=== PATIENT | male | born 1985 | race American Indian/Alaskan Native ===

== ENCOUNTER 2018-02-17 22:12 | Emergency (ER) | payer SELFPAY ==
--- NOTE | 2018-02-17 22:45 | Cat Scan Report ---
FINAL REPORT PROCEDURE: CT HEAD/BRAIN WO CON TECHNIQUE: Computerized tomography of the head was performed without contrast material. HISTORY: neuro deficits <6hrs or sx present upon awakening COMPARISON: No prior studies are available for comparison. FINDINGS: Brain: Brain density appears normal. No evidence of intracranial hemorrhage. No parenchymal hemorrh age, mass lesions or mass effect are seen. No abnormal extraxial fluid collects or masses are seen. Ventricles: Ventricles are normal size and are midline. Bone Windows: No evidence of skull fracture. Paranasal sinuses: Clear Mastoid air cells: Clear IMPRESSION: Negative exam. No acute or focal abnormalities are seen. If symptoms are persisting or worsening cons ider follow-up CT scan or MRI for further evaluation.
[2018-02-17 22:48] LABS: Basophils # (Auto) 0.1 K/mm3 (0.0-0.1); Eosinophils # (Auto) 0.2 K/mm3 (0.0-0.4); Eosinophils % (Auto) 2.8 % (0.0-4.3); Hematocrit 43.3 % (35.5-45.6); Hemoglobin 14.8 gm/dl (11.8-15.2); Lymphocytes # (Auto) 1.9 K/mm3 (1.2-5.4); Mean Corpuscular HGB Conc 34 % (32-34); Mean Corpuscular Volume 88 fl (84-94); Monocytes # (Auto) 0.7 K/mm3 (0.0-0.8); Monocytes % (Auto) 12.4 % (0.0-7.3); Platelet Count 260 K/mm3 (140-440); Red Blood Count 4.91 M/mm3 (3.65-5.03); Red Cell Distribution Width 13.2 % (13.2-15.2)
[2018-02-17 22:58] LABS: INR 1.02 (0.87-1.13)
[2018-02-17 22:59] LABS: Partial Thromboplastin Time 30.2 Sec. (24.2-36.6)
--- NOTE | 2018-02-17 22:59 | Emergency Department Report ---
HPI - General Chief Complaint: Neuro Symptoms/Deficit Time Seen by Provider: 02/17/18 22:26 - HPI HPI: 33-year-old male presents to the emergency department with a complaint of some right-sided facial numbness and facial droop that has been going on for the past 6-7 hours. The patient says that he had a "bad headache" earlier in the day that caused him to take a nap and when he woke up from the nap he had the above-mentioned symptoms. He denies any vision change, slurred speech or any symptoms to the extremities. He says that he was trying to drink some fluid and had some drooling out of the side of his mouth. He did not take anything for his symptoms prior to arrival. He has a past history of hypertension and diabetes. No recent travel or sick contacts at home. ED Past Medical Hx - Past Medical History Previous Medical History?: Yes Hx Hypertension: Yes Hx Diabetes: Yes - Surgical History Past Surgical History?: No - Social History Smoking Status: Never Smoker Substance Use Type: None - Medications Home Medications: Home Medications Medication Instructions Recorded Confirmed Last Taken Type Hydrocodone Bit/Acetaminophen 1 each PO Q6H PRN #12 tablet 01/05/13 Unknown Rx [Lortab 5-500 Tablet] Sulfamethoxazole/Trimethoprim 1 each PO BID #20 tablet 01/05/13 Unknown Rx [Bactrim DS] predniSONE [Deltasone] 20 mg PO QDAY #13 tab 02/17/18 Unknown Rx valACYclovir [Valtrex] 1,000 mg PO TID #21 tablet 02/17/18 Unknown Rx ED Review of Systems ROS: Stated complaint: RT SIDE NUMBNESS Other details as noted in HPI Comment: All other systems reviewed and negative Constitutional: denies: chills, fever Eyes: denies: eye pain, vision change ENT: denies: ear pain, throat pain Respiratory: denies: cough, shortness of breath Cardiovascular: denies: chest pain, palpitations Gastrointestinal: denies: abdominal pain, vomiting Genitourinary: denies: dysuria, discharge Musculoskeletal: denies: back pain, arthralgia Skin: denies: rash, lesions Neurological: headache, numbness, other (facial droop) Physical Exam - Physical Exam Vital Signs: Vital Signs 02/17/18 22:20 Temperature 98.1 F Pulse Rate 74 Respiratory 18 Rate Blood Pressure 173/113 O2 Sat by Pulse 97 Oximetry Physical Exam: GENERAL: The patient is well-developed well-nourished. HEENT: Normocephalic. Atraumatic. Patient has moist mucous membranes. EYES: Extraocular motions are intact. Pupils are equal and reactive to light bilaterally. NECK: Supple. Trachea is midline. CHEST/LUNGS: Clear to auscultation. There is no respiratory distress noted. HEART/CARDIOVASCULAR: Regular. There is no tachycardia. There is no obvious murmur. ABDOMEN: Abdomen is soft, nontender. Patient has normal bowel sounds. There is no abdominal distention. SKIN: Skin is warm and dry. NEURO: The patient is awake, alert, and oriented. The patient is cooperative. There is mild right-sided facial paresis to both the upper and lower face. Patient has difficulty completely closing the right eyelid. Mild subjective decreased sensation to the right side of the face. The patient has normal speech. MUSCULOSKELETAL: There is no tenderness or deformity. There is no limitation range of motion. There is no evidence of acute injury. Muscle strength 5 out of 5 upper and lower extremities bilaterally. ED Course Vital Signs 02/17/18 22:20 Temperature 98.1 F Pulse Rate 74 Respiratory 18 Rate Blood Pressure 173/113 O2 Sat by Pulse 97 Oximetry - Consultations Consultation #1: I spoke with the telemedicine neurologist, Dr. 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 02/18/18 00:58 ED Medical Decision Making - Lab Data Result diagrams: 02/17/18 22:34 02/17/18 22:34 - EKG Data -: EKG Interpreted by [facility] EKG shows normal: sinus rhythm, axis, intervals, QRS complexes, ST-T waves Rate: normal - EKG Data When compared to previous EKG there are: previous EKG unavailable Interpretation: normal EKG - Radiology Data Radiology results: report reviewed CT of the head without contrast does not show any bleed, shift, mass, ischemia or any other acute process. - Medical Decision Making Patient presents with right-sided facial droop and right-sided upper and lower face paresis that started after waking up from a nap earlier in the day. He has no other neurological deficits and nothing that involves the extremities. He has normal speech without any dysarthria or aphasia. CT scan of the head did not show any bleed, shift, mass, ischemia or any other acute process. Patient had some hypertension but otherwise his vital signs and stable throughout his ED course. He was seen by the telemedicine neurologist who agrees that the patient appears most consistent with Mathis's palsy. Patient was given Valtrex a nd prednisone and a prescription for both. He will follow up with his primary care physician and will return to the ER with any worsening of his symptoms or any acute distress. - Differential Diagnosis [place] Palsy, CVA, TIA Critical Care Time: No Critical care attestation.: If time is entered above; I have spent that time in minutes in the direct care of this critically ill patient, excluding procedure time. ED Disposition Clinical Impression: Mathis's palsy Disposition: DC-01 TO HOME OR SELFCARE Is pt being admited?: No Condition: Stable Instructions: Mathis Palsy (ED) Additional Instructions: Please follow-up with your primary care physician in the next few days. Return to the emergency Department with any worsening of your symptoms or any acute distress. Prescriptions: predniSONE [Deltasone] 20 mg PO QDAY #13 tab valACYclovir [Valtrex] 1,000 mg PO TID #21 tablet Referrals: PRIMARY CARE, [Primary Care Provider] - [facility] Forms: Work/School Release Form(ED) Time of Disposition: 23:59
[2018-02-17 23:01] LABS: BUN/Creatinine Ratio 13; Blood Urea Nitrogen 14 mg/dL (9-20); Calcium 9.6 mg/dL (8.4-10.2); Hemolysis Index 26
[2018-02-17] MEDS ORDERED: VALTREX PO ONE (23:54)
[2018-02-17] MEDS ORDERED: DELTASONE PO ONE (23:54)
[2018-02-18 00:54] VITALS: BP 145/69
== END 2018-02-18 00:54 | disposition home or self-care (01) ==
LOC: ED 22:12
DX: G51.0 Bell's palsy (principal); I10 Essential (primary) hypertension; E11.9 Type 2 diabetes mellitus without complications
CPT/HCPCS: 36415; 70450; 80048; 82962; 84484; 85025; 85610; 85670; 85730; 93005; 93010; 99284; J7512